=== PATIENT | male | born 1955 | race Caucasian/White ===

== ENCOUNTER 2018-04-22 16:59 | Inpatient (IN) ==
--- NOTE | 2018-04-22 17:55 | ED ---
HPI General Chief complaint: Arrhythmia / Palpitations Stated complaint: Swollen Feet/sob x 15 days/new onset of Afib Time Seen by Provider: 04/22/18 17:38 Source: patient and family (daughter) Mode of arrival: ambulatory Limitations: no limitations History of Present Illness HPI narrative: 65-year-old male patient with history of hypertension noncompliant with his blood pressure medications, presents to the ER today because he has had 2 weeks history of worsening dyspnea on exertion, orthopnea, leg swelling, and weakness according to the daughter. 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 He was found to have a new onset atrial fibrillation and was sent into the ER for further evaluation. He has not had any chest pains, fevers, vomiting, or any other symptoms. History is mostly per daughter since he speaks little Upper Sorbian. Modifying Factors: None Associated Signs & Symptoms: Increased dyspnea on exertion, weakness, leg swelling for 2 weeks Risk Factors: None Related Data Home Medications Medication Instructions Recorded Confirmed lisinopril 20 mg PO DAILY 04/22/18 04/22/18 metformin 500 mg PO BID 04/22/18 04/22/18 nifedipine 60 mg PO DAILY 04/22/18 04/22/18 Allergies Allergy/AdvReac Type Severity Reaction Status Date / Time No Known Allergies Allergy Verified 04/22/18 17:08 Review of Systems ROS: all other systems reviewed are negative [facility] Medical History Medical History Diabetes (Acute) HTN (hypertension) (Acute) New onset a-fib (Acute) Social History Social History Substance History: No History of Abuse Smoking Status: Never smoker How Often Do You Have a Drink Containing Alcohol: 2 to 4 times a month Recent Travel in [facility] within the Last 8 Weeks: No Recent Out of Country Travel within the Last 8 Weeks: No Immunization History Tetanus Immunization: <5 Years Exam Narrative Exam Narrative: GENERAL: Well-developed elderly male patient currently in mild distress. Awake and oriented x3. SKIN: Focused skin assessment warm/dry. HEAD: Atraumatic. Normocephalic. EYES: Pupils equal and round. No scleral icterus. No injection or drainage. ENT: No nasal bleeding or discharge. Mucous membranes pink and moist. NECK: Trachea midline. Supple.. CARDIOVASCULAR: Regular rate and rhythm. No murmur appreciated. RESPIRATORY: No accessory muscle use. Clear to auscultation. Breath sounds equal bilaterally. GASTROINTESTINAL: Abdomen soft, non-tender, nondistended. Hepatic and splenic margins not palpable. MUSCULOSKELETAL: No obvious deformities. No clubbing. No cyanosis. Bilateral leg pitting edema. NEUROLOGICAL: Awake and alert. No obvious cranial nerve deficits. Motor grossly within normal limits. Normal speech. PSYCHIATRIC: Appropriate mood and affect; insight and judgment normal. Course Initial Documented Vital Signs Temperature 98.6 F 04/22/18 17:06 Pulse Rate 92 H 04/22/18 17:06 Respiratory Rate 16 04/22/18 17:06 Blood Pressure 167/111 H 04/22/18 17:06 Pulse Oximetry 96 04/22/18 17:06 Last Documented Vital Signs Temperature 98.6 F 04/22/18 17:06 Pulse Rate 90 04/22/18 18:04 Respiratory Rate 18 04/22/18 17:37 Blood Pressure 174/116 H 04/22/18 17:37 Pulse Oximetry 97 04/22/18 18:04 Medical Decision Making MDM Narrative Medical decision making narrative: EKG shows A. fib at a rate of 90 bpm. Blood pressure is fairly elevated. His oxygenation is 97% on room air. Chest x-ray shows signs of venous congestion and BNP is 1300 consistent with a CHF as well. At this point, Lasix was given in the ER. Case is discussed with Dr. Gonsalves for admission for further evaluation of his heart. His d-dimer is mildly elevated and PE study was also ordered for further evaluation. Per discussion with Dr. Gonsalves, he would like the patient to be started on Eliquis as well for the new onset A. fib. Medical Screen Exam Complete: Yes Emergency Medical Condition: Yes Differential Diagnosis Differential Diagnosis: New onset A. fib versus ACS versus pneumonia versus CHF versus PE Lab Data Lab results reviewed: Yes I reviewed the patient's lab results. Result diagrams: 04/22/18 17:50 04/22/18 17:50 Lab Results 04/22/18 04/22/18 04/22/18 Range/Units 17:50 17:50 17:50 CBC w Diff Auto diff final WBC 6.8 (4.0-11.0) th/mm3 RBC 4.98 (4.50-5.90) mil/mm3 Hgb 14.2 (13.0-17.0) gm/dL Hct 44.9 (39.0-51.0) % MCV 90.2 (80.0-100.0) fL MCH 28.5 (27.0-34.0) pg MCHC 31.5 L (32.0-36.0) % RDW 15.2 (11.6-17.2) % Plt Count 176 (150-450) th/mm3 MPV 9.1 (7.0-11.0) fL Neut % (Auto) 70.8 H (16.0-70.0) % Lymph % (Auto) 19.7 (9.0-44.0) % Mcpherson % (Auto) 6.6 (0.0-8.0) % Eos % (Auto) 2.0 (0.0-4.0) % Baso % (Auto) 0.9 (0.0-2.0) % Neut # (Auto) 4.8 (1.8-7.7) th/mm3 Lymph # (Auto) 1.3 (1.0-4.8) th/mm3 Mcpherson # (Auto) 0.5 (0.0-0.9) th/mm3 Eos # (Auto) 0.1 (0.0-0.4) th/mm3 Baso # (Auto) 0.1 (0.0-0.2) th/mm3 WBC Differential . Differential Comment . PT 11.4 (9.8-11.6) sec INR 1.1 Ratio APTT 27.8 (23.4-31.7) sec D-Dimer Quant (PE/DVT) (0.00-0.50) mg/L FEU Sodium 139 (136-145) meq/L Potassium 4.0 (3.5-5.1) meq/L Chloride 104 (98-107) meq/L Carbon Dioxide 28.3 (21.0-32.0) meq/L Anion Gap 7 (5-15) meq/L BUN 23 H (7-18) mg/dL Creatinine 1.40 H (0.60-1.30) mg/dL Estimated GFR 51 L (>89) mL/min Random Glucose 134 H (74-106) mg/dL Calcium 8.0 L (8.5-10.1) mg/dL Total Bilirubin 0.8 (0.2-1.0) mg/dL AST 29 (15-37) U/L ALT 24 (12-78) U/L Alkaline Phosphatase 84 (45-117) U/L Troponin I 0.02 (0.02-0.05) ng/mL B-Natriuretic Peptide (0-100) pg/mL Total Protein 6.5 (6.4-8.2) g/dL Albumin 2.4 L (3.4-5.0) g/dL 04/22/18 04/22/18 Range/Units 17:50 17:50 CBC w Diff WBC (4.0-11.0) th/mm3 RBC (4.50-5.90) mil/mm3 Hgb (13.0-17.0) gm/dL Hct (39.0-51.0) % MCV (80.0-100.0) fL MCH (27.0-34.0) pg MCHC (32.0-36.0) % RDW (11.6-17.2) % Plt Count (150-450) th/mm3 MPV (7.0-11.0) fL Neut % (Auto) (16.0-70.0) % Lymph % (Auto) (9.0-44.0) % Mcpherson % (Auto) (0.0-8.0) % Eos % (Auto) (0.0-4.0) % Baso % (Auto) (0.0-2.0) % Neut # (Auto) (1.8-7.7) th/mm3 Lymph # (Auto) (1.0-4.8) th/mm3 Mcpherson # (Auto) (0.0-0.9) th/mm3 Eos # (Auto) (0.0-0.4) th/mm3 Baso # (Auto) (0.0-0.2) th/mm3 WBC Differential Differential Comment PT (9.8-11.6) sec INR Ratio APTT (23.4-31.7) sec D-Dimer Quant (PE/DVT) 0.91 H (0.00-0.50) mg/L FEU Sodium (136-145) meq/L Potassium (3.5-5.1) meq/L Chloride (98-107) meq/L Carbon Dioxide (21.0-32.0) meq/L Anion Gap (5-15) meq/L BUN (7-18) mg/dL Creatinine (0.60-1.30) mg/dL Estimated GFR (>89) mL/min Random Glucose (74-106) mg/dL Calcium (8.5-10.1) mg/dL Total Bilirubin (0.2-1.0) mg/dL AST (15-37) U/L ALT (12-78) U/L Alkaline Phosphatase (45-117) U/L Troponin I (0.02-0.05) ng/mL B-Natriuretic Peptide 1330 H (0-100) pg/mL Total Protein (6.4-8.2) g/dL Albumin (3.4-5.0) g/dL Imaging Data Attestation: I personally reviewed and interpreted this imaging study as follows : Radiologist's impression: Chest X-Ray 04/22/18 17:38 CONCLUSION: 1. Mild cardiomegaly with mild pulmonary vascular congestion. 2. Mild more confluent airspace disease in the left lung base may reflect atelectasis. Developing pneumonia cannot be excluded in the appropriate clinical setting. ECG Data Interpretation: EKG shows A. fib with ventricular rate of 92 bpm. Discharge Plan Discharge Order Discharge Orders: ED Use Only Admit Order (Routine); Ordered 04/22/18 Ordered By: Audrey Estrella Discharge Details Anticipated Discharge Date: 04/22/18 Physicians Team ED Provider: Audrey Estrella Primary Care Provider: Ashleigh Romero Rxs /Orders / Referrals /Forms Prescriptions: No Action metformin 500 mg Tablet 500 mg PO BID RF: 0 lisinopril 20 mg Tablet 20 mg PO DAILY RF: 0 nifedipine 60 mg Tablet Extended Release 60 mg PO DAILY RF: 0 Discharge Interventions Interventions: Vital Signs Last Done: 04/22/18 17:37 Status ED Status: With Doctor
--- NOTE | 2018-04-22 18:10 | XR ---
EXAM DATE: 04/22/2018 6:07 PM EST AGE/SEX: 62 years / Male INDICATIONS: Shortness of breath. CLINICAL DATA: This is the patient's initial encounter. Patient reports that signs and symptoms have been present for 1 week and indicates a pain score of 0/10. MEDICAL/SURGICAL HISTORY: Hypertension. Diabetes mellitus type II. None. COMPARISON: No prior exams available for comparison. FINDINGS: Mild diffuse interstitial prominence with patchy airspace disease in the lower lung zones which appea r slightly more confluent in the left lower lung zone. Likely trace fluid in the fissures. Cardiac si lhouette is mildly enlarged with indistinct central pulmonary vascularity. Remainder of the exam is u nchanged. CONCLUSION: 1. Mild cardiomegaly with mild pulmonary vascular congestion. 2. Mild more confluent airspace disease in the left lung base may reflect atelectasis. Developing pn eumonia cannot be excluded in the appropriate clinical setting. Electronically signed by: Cristian Dixon MD Board Certified Radiologist 04/22/2018 6:09 PM YVONNE Cochran
[2018-04-22 18:17] LABS: Baso # (Auto) 0.1 th/mm3 (0.0-0.2); Baso % (Auto) 0.9 % (0.0-2.0); Eos # (Auto) 0.1 th/mm3 (0.0-0.4); Hematocrit 44.9 % (39.0-51.0); Hemoglobin 14.2 gm/dL (13.0-17.0); Lymph # (Auto) 1.3 th/mm3 (1.0-4.8); Lymph % (Auto) 19.7 % (9.0-44.0); Mean Corpuscular HGB Conc 31.5 % (32.0-36.0); Mean Corpuscular Hemoglobin 28.5 pg (27.0-34.0); Mean Corpuscular Volume 90.2 fL (80.0-100.0); Mean Platelet Volume 9.1 fL (7.0-11.0); Mono # (Auto) 0.5 th/mm3 (0.0-0.9); Mono % (Auto) 6.6 % (0.0-8.0); Neut # (Auto) 4.8 th/mm3 (1.8-7.7); Neut % (Auto) 70.8 % (16.0-70.0); Platelet Count 176 th/mm3 (150-450); Red Blood Count 4.98 mil/mm3 (4.50-5.90); Red Cell Distribution Width 15.2 % (11.6-17.2); White Blood Count 6.8 th/mm3 (4.0-11.0)
[2018-04-22 18:24] LABS: Chloride 104 meq/L (98-107); Sodium 139 meq/L (136-145)
[2018-04-22 18:27] LABS: Albumin 2.4 g/dL (3.4-5.0); Anion Gap 7 meq/L (5-15); Blood Urea Nitrogen 23 mg/dL (7-18); Carbon Dioxide 28.3 meq/L (21.0-32.0); Glucose,Random 134 mg/dL (74-106)
[2018-04-22 18:28] LABS: Activated Partial Thrombo Time 27.8 sec (23.4-31.7); INR 1.1 Ratio; Prothrombin Time 11.4 sec (9.8-11.6)
[2018-04-22 18:30] LABS: Alanine Aminotransferase 24 U/L (12-78); Aspartate Aminotransferase 29 U/L (15-37); Glomerular Filtration Rate 51 mL/min (>89)
[2018-04-22 18:32] LABS: Total Protein 6.5 g/dL (6.4-8.2)
[2018-04-22 18:33] LABS: Alkaline Phosphatase 84 U/L (45-117)
[2018-04-22 18:35] LABS: Troponin I 0.02 ng/mL (0.02-0.05)
[2018-04-22] MEDS ORDERED: Bisacodyl 10 MG Supp RECTAL PRN (19:30)
[2018-04-22] MEDS ORDERED: Acetaminophen 325 MG Tablet PO PRN (19:30)
--- NOTE | 2018-04-22 19:58 | P.HP ---
History of Present Illness Service: [facility] Hospitalist Primary Care Physician: Ashleigh Romero MD Chief Complaint: 2 weeks of increasing shortness of breath lower extremity edema History of Present Illness: 62-year-old white male speaks no Icelandic who was brought in by his daughter and his basically with complaints of increasing shortness of breath lower extremity edema over a 2-week time. Patient does have a history of hypertension and is supposed to be on nifedipine 60 mg daily as well as lisinopril 20 mg daily, and has a history of diabetes on metformin 500 a day. Patient has been noncompliant and does not take these medicines. In the emergency room he had a chest x-ray was consistent with cardiomegaly and congestive heart failure, was found to be in atrial fibrillation heart rate is ranging from anywhere from 95-105, elevated blood pressure systolic 180 diastolic approximately 100, BNP greater than 1000. Patient will be started on IV Lasix will receive 40 mg in the emergency room also due to the elevated blood pressure I will give him an IV dose of Vasotec admit him to the intensive care unit. Recheck labs in the morning we will see how he is doing clinically we will need to also add a 2D echo he had a slight elevation of d-dimer and we will get CTA, and due to the A. fib new onset will empirically start the patient on Eliquis 2.5 twice daily in view of the slight kidney insufficiency his creatinine is approximately 1.6. - Diagnosis (1) CHF (congestive heart failure) (2) New onset a-fib (3) Hypertension (4) Diabetes Inpatient Certification: I certify that the inpatient services were ordered in accordance with Medicare regulations governing the order. This includes certification that hospital inpatient services are reasonable and necessary and in the case of services not specified as inpatient-only under 42 CFR 419.22(n), that they are appropriately provided as inpatient services in accordance to with the 2-midnight benchmark under 43 CFR 412.3(e) Estimated Total Length of Stay (Days): 3 Plans for Post Hospital Care: Not yet determined Review of Systems Cardiovascular: Reports fast heart rate, Reports foot swelling, Reports shortness of breath, Reports shortness of breath when lying down PMFSH - History History Provided By: Patient - Medical History Medical History: Medical History (Last Reviewed 04/22/18 @ 19:55 by Zeb Gonsalves MD) Diabetes HTN (hypertension) New onset a-fib - Tobacco History Smoking Status: Never smoker - Alcohol History How Often Do You Have a Drink Containing Alcohol: 2 to 4 times a month - Substance Use History Substance History: No History of Abuse - Travel History Recent Travel in the [place] Within the Last 8 Weeks: No Recent Travel Out of the Country Within the Last 8 Weeks: No - Immunization History Tetanus Immunization: <5 Years Medications and Allergies Active Medications: Active Medications Acetaminophen (Tylenol) 650 mg PO Q4H PRN PRN Reason: Temp > 100.4 Al Hydroxide/Mg Hydroxide (Milk Of Magnesia Liq) 30 ml PO Q12H PRN PRN Reason: Mild Constipation Bisacodyl (Dulcolax Supp) 10 mg RECTAL DAILY PRN PRN Reason: SEVERE CONSITIPATION Enalaprilat (Vasotec Inj) 1.25 mg IV.PUSH Q8H PRN PRN Reason: SBP>180, DBP>100, HR>65 Lactulose (Lactulose Liq) 30 ml PO DAILY PRN PRN Reason: SEVERE CONSITIPATION Lisinopril (Prinivil) 20 mg PO DAILY ANGEL Non-Formulary Medication (Nifedipine [Nifedipine]) 60 mg PO DAILY ANGEL Ondansetron HCl (Zofran Inj) 4 mg IV.PUSH Q6H PRN PRN Reason: NAUSEA OR VOMITING Senna/Docusate Sodium (Cindy-Colace) 1 tab PO BID ANGEL Sennosides (Senokot) 17.2 mg PO Q12H PRN PRN Reason: Moderate Constipation Sodium Chloride (Ns Flush) 2 ml IV.FLUSH UNSCH PRN PRN Reason: FLUSH AFTER USING IV ACCESS Sodium Chloride (Ns Flush) 2 ml IV.FLUSH BID ANGEL Sodium Chloride (Ns Flush) 2 ml IV.FLUSH PRN PRN PRN Reason: FLUSH AFTER USING IV ACCESS Allergies Allergy/AdvReac Type Severity Reaction Status Date / Time No Known Allergies Allergy Verified 04/22/18 17:08 Home Medications Medication Instructions Recorded Confirmed Type lisinopril 20 mg PO DAILY 04/22/18 04/22/18 History metformin 500 mg PO BID 04/22/18 04/22/18 History nifedipine 60 mg PO DAILY 04/22/18 04/22/18 History Exam Vital signs: Vital Signs 04/22/18 17:06 04/22/18 17:37 04/22/18 18:04 Temperature 98.6 F Pulse Rate 92 H 93 H 90 Respiratory Rate 16 18 Blood Pressure 167/111 H 174/116 H Pulse Oximetry 96 97 97 04/22/18 19:01 Temperature Pulse Rate 91 H Respiratory Rate 18 Blood Pressure 174/118 H Pulse Oximetry 96 Intake & Output 04/22/18 04/22/18 04/23/18 06:59 18:59 06:59 Weight 99.5 kg Narrative: GENERAL: SKIN: Warm and dry. HEAD: Normocephalic. EYES: No scleral icterus. No injection or drainage. NECK: Supple, trachea midline. No JVD or lymphadenopathy. CARDIOVASCULAR: irreg rate and rhythm without murmurs, gallops, or rubs. RESPIRATORY: Breath sounds decreased with bilateral rales bases. No accessory muscle use. GASTROINTESTINAL: Abdomen soft, non-tender, nondistended. MUSCULOSKELETAL: No cyanosis, or edema. BACK: Nontender without obvious deformity. No CVA tenderness. Results - Labs CBC & Chem 7: 04/22/18 17:50 04/22/18 17:50 Labs: Laboratory Results - last 24 hr 04/22/18 04/22/18 04/22/18 17:50 17:50 17:50 CBC w Diff Auto diff final WBC 6.8 RBC 4.98 Hgb 14.2 Hct 44.9 MCV 90.2 MCH 28.5 MCHC 31.5 L RDW 15.2 Plt Count 176 MPV 9.1 Neut % (Auto) 70.8 H Lymph % (Auto) 19.7 Boyd % (Auto) 6.6 Eos % (Auto) 2.0 Baso % (Auto) 0.9 Neut # (Auto) 4.8 Lymph # (Auto) 1.3 Boyd # (Auto) 0.5 Eos # (Auto) 0.1 Baso # (Auto) 0.1 WBC Differential . Differential Comment . PT 11.4 INR 1.1 APTT 27.8 D-Dimer Quant (PE/DVT) Sodium 139 Potassium 4.0 Chloride 104 Carbon Dioxide 28.3 Anion Gap 7 BUN 23 H Creatinine 1.40 H Estimated GFR 51 L Random Glucose 134 H Calcium 8.0 L Total Bilirubin 0.8 AST 29 ALT 24 Alkaline Phosphatase 84 Troponin I 0.02 B-Natriuretic Peptide Total Protein 6.5 Albumin 2.4 L 04/22/18 04/22/18 17:50 17:50 CBC w Diff WBC RBC Hgb Hct MCV MCH MCHC RDW Plt Count MPV Neut % (Auto) Lymph % (Auto) Boyd % (Auto) Eos % (Auto) Baso % (Auto) Neut # (Auto) Lymph # (Auto) Boyd # (Auto) Eos # (Auto) Baso # (Auto) WBC Differential Differential Comment PT INR APTT D-Dimer Quant (PE/DVT) 0.91 H Sodium Potassium Chloride Carbon Dioxide Anion Gap BUN Creatinine Estimated GFR Random Glucose Calcium Total Bilirubin AST ALT Alkaline Phosphatase Troponin I B-Natriuretic Peptide 1330 H Total Protein Albumin - Imaging Impressions Chest X-Ray 04/22/18 17:38 CONCLUSION: 1. Mild cardiomegaly with mild pulmonary vascular congestion. 2. Mild more confluent airspace disease in the left lung base may reflect atelectasis. Developing pneumonia cannot be excluded in the appropriate clinical setting. Caprini VTE Risk Assessment Caprini VTE Risk Assessment: Moderate/High Risk (score >= 2) Caprini Risk Assessment Model: Point Value = 1 Point Value = 2 Point Value = 3 Point Value = 5 Age 41-60 Minor surgery BMI > 25 kg/m2 Swollen legs Varicose veins or History of unexplained or recurrent spontaneous Oral contraceptives or hormone replacement Sepsis (< 1 month) Serious lung disease, including pneumonia (< 1 month) Abnormal pulmonary function Acute myocardial infarction Congestive heart failure (< 1 month) History of inflammatory bowel disease Medical patient at bed rest Age 61-74 Arthroscopic surgery Major open surgery (> 45 min) Laparoscopic surgery (> 45 min) Malignancy Confined to bed (> 72 hours) Immobilizing plaster cast Central venous access Age >= 75 History of VTE Family history of VTE Factor V Leiden Prothrombin [id number] Lupus anticoagulant Anticardiolipin antibodies Elevated serum homocysteine Heparin-induced thrombocytopenia Other congenital or acquired thrombophilia Stroke (< 1 month) Elective arthroplasty Hip, pelvis, or leg fracture Acute spinal cord injury (< 1 month) Prophylaxis Regimen: Total Risk Factor Score Risk Level Prophylaxis Regimen 0-1 Low Early ambulation 2 Moderate Order ONE of the following: *Sequential Compression Device (SCD) *Heparin 5000 units SQ BID 3-4 Higher Order ONE of the following medications: *Heparin 5000 units SQ TID *Enoxaparin/Lovenox 40 mg SQ daily (WT < 150 kg, CrCl > 30 mL/min) *Enoxaparin/Lovenox 30 mg SQ daily (WT < 150 kg, CrCl > 10-29 mL/min) *Enoxaparin/Lovenox 30 mg SQ BID (WT < 150 kg, CrCl > 30 mL/min) AND/OR *Sequential Compression Device (SCD) 5 or more Highest Order ONE of the following medications: *Heparin 5000 units SQ TID (Preferred with Epidurals) *Enoxaparin/Lovenox 40 mg SQ daily (WT < 150 kg, CrCl > 30 mL/min) *Enoxaparin/Lovenox 30 mg SQ daily (WT < 150 kg, CrCl > 10-29 mL/min) *Enoxaparin/Lovenox 30 mg SQ BID (WT < 150 kg, CrCl > 30 mL/min) AND *Sequential Compression Device (SCD) Assessment and Plan - Assessment (1) CHF (congestive heart failure) Code(s): I50.9 - Heart failure, unspecified Status: Acute Plan: IV diuresis with Lasix 40 mg will use twice daily for now and see how patient responds follow labs also continue his HUGO which she had not been taking at home (2) New onset a-fib Code(s): I48.91 - Unspecified atrial fibrillation Status: Acute Plan: We will get a 2D echo as the heart rate is relatively stable and not use any calcium channel alcira at this time (3) Hypertension Code(s): I10 - Essential (primary) hypertension Status: Acute Plan: We will use IV Vasotec for now and follow labs, continue his nifedipine which is supposed to be taking 60 mg daily (4) Diabetes Code(s): E11.9 - Type 2 diabetes mellitus without complications Status: Acute Plan: Hold his metformin which she had not been taking at home as his creatinine is slightly elevated and will use a sliding scale with coverage - Plan Further plan as case develops Code Status: Full Discussed Condition With: Patient and family
--- NOTE | 2018-04-22 19:59 | CT ---
EXAM DATE: 04/22/2018 7:52 PM EST AGE/SEX: 62 years / Male INDICATIONS: Swollen feet. Shortness of breath for 15 days. CLINICAL DATA: This is the patient's initial encounter. Patient reports that signs and symptoms have been present for 2 weeks and indicates a pain score of 2/10. MEDICAL/SURGICAL HISTORY: . Diabetes. Hypertension. New onset atrial fibrillation. . RADIATION DOSE: 18.55 CTDI (mGy) COMPARISON: [facility], CHEST 1V SINGLE AP, 04/22/2018. . TECHNIQUE: Volumetric scanning was performed using a multi-row detector CT scanner during bolus infu jossy of 75 ml Omnipaque 350 (iohexol) nonionic water-soluble contrast as a single exam dose. The jaret a was post processed with a variety of visualization algorithms including full volume maximum intensi ty projection and sliding thin slab reformation. Using automated exposure control and adjustment of the mA and/or kV according to patient size, radiation dose was kept as low as reasonably achievable t o obtain optimal diagnostic quality images. DICOM format image data is available electronically for review and comparison. FINDINGS: Pulmonary Arteries: No filling defects are seen in the pulmonary arteries through the segmental vess els. The main pulmonary artery is normal in diameter. Lung: Minimal groundglass opacities at the lung bases adjacent pleural fluid. Mild airspace consolid ation in the inferior lingula. Pleura: Small bilateral pleural effusions with trace fluid in the major fissures. Mediastinum: Cardiac silhouette is enlarged. No significant pericardial effusion. Subcentimeter medi astinal nodes do not meet CT size criteria. Osseous Structures: No abnormal focal lytic or blastic bony lesions. Other: Visualized upper abdomen demonstrates a gallstone in the gallbladder. Fat-containing left adr enal mass measuring 2.7 cm. CONCLUSION: 1. No CT evidence for pulmonary artery embolism as questioned. 2. Cardiomegaly with small bilateral pleural effusions and associated atelectasis at the lung bases. 3. Mild airspace consolidation in the inferior lingula. 4. Cholelithiasis. 5. 2.7 cm left adrenal myelolipoma. Electronically signed by: Cristian Dixon MD Board Certified Radiologist 04/22/2018 7:57 PM YVONNE T
[2018-04-22 20:03] LABS: INR 1.1 Ratio; Prothrombin Time 11.3 sec (9.8-11.6)
[2018-04-22] MEDS: Senna/Docusate Sodium 8.6/50 MG Tablet PO SCH (21:23)
[2018-04-22] MEDS ORDERED: Dextrose 50% in Water 50 ML Vial IV.PUSH PRN (21:34)
[2018-04-22] MEDS ORDERED: Labetalol HCl Inj 100 MG/20 ML Vial IV.PUSH SCH (23:15)
[2018-04-22] MEDS: Insulin NovoLOG Aspart Correctional Sugar Inj SQ SCH (23:23)
[2018-04-23 07:08] LABS: Hematocrit 46.4 % (39.0-51.0); Hemoglobin 14.8 gm/dL (13.0-17.0); Mean Corpuscular Hemoglobin 28.9 pg (27.0-34.0); Mean Corpuscular Volume 90.3 fL (80.0-100.0); Mean Platelet Volume 9.1 fL (7.0-11.0); Red Blood Count 5.13 mil/mm3 (4.50-5.90); Red Cell Distribution Width 14.8 % (11.6-17.2); White Blood Count 6.7 th/mm3 (4.0-11.0)
[2018-04-23 07:13] LABS: Potassium 3.2 meq/L (3.5-5.1)
[2018-04-23 07:16] LABS: Calcium 8.2 mg/dL (8.5-10.1); Carbon Dioxide 31.7 meq/L (21.0-32.0)
[2018-04-23 07:32] LABS: Platelet Count 96 th/mm3 (150-450)
[2018-04-23] MEDS: Metoprolol Tartrate 25 MG Tablet PO SCH ×2 (08:31→20:56)
[2018-04-23] MEDS: Lisinopril 20 MG Tablet PO SCH (08:31)
[2018-04-23] MEDS: Insulin NovoLOG Aspart Correctional Sugar Inj SQ SCH ×4 (08:31→20:42)
[2018-04-23] MEDS: Senna/Docusate Sodium 8.6/50 MG Tablet PO SCH ×2 (08:39→20:56)
[2018-04-23] MEDS ORDERED: Influenza (Quadrivalent) Vaccine 0.5 ML Syringe IM ONE (09:00)
--- NOTE | 2018-04-23 12:03 | P.PN ---
Subjective Interval history: Patient admitted with new atrial fib and CHF ,diuresing well ,feeling better labs slight decrease in potassium BNP remains elevated ,heart rate between 80- 105 started on lopressor 25 bid ,also blood pressure still running high but overall better. CTA CHF no PE as patient had 3elevated d dimer. Physical Exam Vital signs: Vital Signs 04/22/18 17:06 04/22/18 17:37 04/22/18 18:04 Temperature 98.6 F Pulse Rate 92 H 93 H 90 Respiratory Rate 16 18 Blood Pressure 167/111 H 174/116 H Pulse Oximetry 96 97 97 04/22/18 19:01 04/22/18 19:30 04/22/18 20:00 Temperature Pulse Rate 91 H 101 H 78 Respiratory Rate 18 18 Blood Pressure 174/118 H 178/126 H Pulse Oximetry 96 100 98 04/22/18 20:24 04/22/18 20:56 04/22/18 22:00 Temperature Pulse Rate 102 H 104 H 102 H Respiratory Rate 18 14 18 Blood Pressure 168/100 H 169/116 H 178/109 H Pulse Oximetry 100 04/22/18 23:00 04/22/18 23:15 04/23/18 00:00 Temperature 98.3 F Pulse Rate 94 H 80 Respiratory Rate 11 L 12 Blood Pressure 160/107 H Pulse Oximetry 98 04/23/18 01:00 04/23/18 02:00 04/23/18 03:00 Temperature Pulse Rate 84 80 88 Respiratory Rate 16 15 9 L Blood Pressure 157/100 H 148/86 H 169/103 H Pulse Oximetry 04/23/18 04:02 04/23/18 05:00 04/23/18 08:00 Temperature 97.7 F 97.6 F Pulse Rate 86 80 98 H Respiratory Rate 13 18 27 H Blood Pressure 180/99 H 148/87 H 135/109 H Pulse Oximetry Intake & Output 04/22/18 04/23/18 04/23/18 18:59 06:59 18:59 Output Total 2800 / 2800 Balance -2800 / -2800 Weight 99.5 kg 93.6 kg Output: Urine 2800 / 2800 Other: Date of Last Bowel Movement 04/22/18 Weight On Admission 96.9 kg Narrative: GENERAL: SKIN: Warm and dry. HEAD: Normocephalic. EYES: No scleral icterus. No injection or drainage. NECK: Supple, trachea midline. No JVD or lymphadenopathy. CARDIOVASCULAR: Irreg rate and rhythm without murmurs, gallops, or rubs. RESPIRATORY: Breath sounds decrease bilaterally. No accessory muscle use. Improved in rales GASTROINTESTINAL: Abdomen soft, non-tender, nondistended. MUSCULOSKELETAL: No cyanosis, or edema. BACK: Nontender without obvious deformity. No CVA tenderness. Results - Labs CBC & Chem 7: 04/23/18 06:17 04/23/18 06:17 Laboratory Results - last 24 hr 04/22/18 04/22/18 04/22/18 17:50 17:50 17:50 CBC w Diff Auto diff final WBC 6.8 RBC 4.98 Hgb 14.2 Hct 44.9 MCV 90.2 MCH 28.5 MCHC 31.5 L RDW 15.2 Plt Count 176 MPV 9.1 Neut % (Auto) 70.8 H Lymph % (Auto) 19.7 [place] % (Auto) 6.6 Eos % (Auto) 2.0 Baso % (Auto) 0.9 Neut # (Auto) 4.8 Lymph # (Auto) 1.3 [place] # (Auto) 0.5 Eos # (Auto) 0.1 Baso # (Auto) 0.1 WBC Differential . Differential Comment . PT 11.4 INR 1.1 APTT 27.8 D-Dimer Quant (PE/DVT) Sodium 139 Potassium 4.0 Chloride 104 Carbon Dioxide 28.3 Anion Gap 7 BUN 23 H Creatinine 1.40 H Estimated GFR 51 L POC Glucose Random Glucose 134 H Calcium 8.0 L Total Bilirubin 0.8 AST 29 ALT 24 Alkaline Phosphatase 84 Troponin I 0.02 B-Natriuretic Peptide Total Protein 6.5 Albumin 2.4 L 04/22/18 04/22/18 04/22/18 17:50 17:50 19:36 CBC w Diff WBC RBC Hgb Hct MCV MCH MCHC RDW Plt Count MPV Neut % (Auto) Lymph % (Auto) [place] % (Auto) Eos % (Auto) Baso % (Auto) Neut # (Auto) Lymph # (Auto) [place] # (Auto) Eos # (Auto) Baso # (Auto) WBC Differential Differential Comment PT 11.3 INR 1.1 APTT 28.0 D-Dimer Quant (PE/DVT) 0.91 H Sodium Potassium Chloride Carbon Dioxide Anion Gap BUN Creatinine Estimated GFR POC Glucose Random Glucose Calcium Total Bilirubin AST ALT Alkaline Phosphatase Troponin I B-Natriuretic Peptide 1330 H Total Protein Albumin 04/22/18 04/23/18 04/23/18 23:14 05:35 06:17 CBC w Diff WBC 6.7 RBC 5.13 Hgb 14.8 Hct 46.4 MCV 90.3 MCH 28.9 MCHC 32.0 RDW 14.8 Plt Count 96 L D MPV 9.1 Neut % (Auto) Lymph % (Auto) [place] % (Auto) Eos % (Auto) Baso % (Auto) Neut # (Auto) Lymph # (Auto) [place] # (Auto) Eos # (Auto) Baso # (Auto) WBC Differential Differential Comment PT INR APTT D-Dimer Quant (PE/DVT) Sodium Potassium Chloride Carbon Dioxide Anion Gap BUN Creatinine Estimated GFR POC Glucose 110 100 Random Glucose Calcium Total Bilirubin AST ALT Alkaline Phosphatase Troponin I B-Natriuretic Peptide Total Protein Albumin 04/23/18 04/23/18 04/23/18 06:17 06:17 06:30 CBC w Diff WBC RBC Hgb Hct MCV MCH MCHC RDW Plt Count MPV Neut % (Auto) Lymph % (Auto) [place] % (Auto) Eos % (Auto) Baso % (Auto) Neut # (Auto) Lymph # (Auto) [place] # (Auto) Eos # (Auto) Baso # (Auto) WBC Differential Differential Comment PT INR APTT 28.8 D-Dimer Quant (PE/DVT) Sodium 144 Potassium 3.2 L D Chloride 105 Carbon Dioxide 31.7 Anion Gap 7 BUN 21 H Creatinine 1.30 Estimated GFR 56 L POC Glucose Random Glucose 108 H Calcium 8.2 L Total Bilirubin AST ALT Alkaline Phosphatase Troponin I B-Natriuretic Peptide 1411 H Total Protein Albumin 04/23/18 11:50 CBC w Diff WBC RBC Hgb Hct MCV MCH MCHC RDW Plt Count MPV Neut % (Auto) Lymph % (Auto) [place] % (Auto) Eos % (Auto) Baso % (Auto) Neut # (Auto) Lymph # (Auto) [place] # (Auto) Eos # (Auto) Baso # (Auto) WBC Differential Differential Comment PT INR APTT D-Dimer Quant (PE/DVT) Sodium Potassium Chloride Carbon Dioxide Anion Gap BUN Creatinine Estimated GFR POC Glucose 130 H Random Glucose Calcium Total Bilirubin AST ALT Alkaline Phosphatase Troponin I B-Natriuretic Peptide Total Protein Albumin - Imaging Impressions Chest X-Ray 04/22/18 17:38 CONCLUSION: 1. Mild cardiomegaly with mild pulmonary vascular congestion. 2. Mild more confluent airspace disease in the left lung base may reflect atelectasis. Developing pneumonia cannot be excluded in the appropriate clinical setting. Chest CTA 04/22/18 18:43 CONCLUSION: 1. No CT evidence for pulmonary artery embolism as questioned. 2. Cardiomegaly with small bilateral pleural effusions and associated atelectasis at the lung bases. 3. Mild airspace consolidation in the inferior lingula. 4. Cholelithiasis. 5. 2.7 cm left adrenal myelolipoma. Assessment and Plan - Assessment (1) CHF (congestive heart failure) Code(s): I50.9 - Heart failure, unspecified Status: Acute Plan: IV diuresis with Lasix 40 mg will use twice daily for now and see how patient responds follow labs also continue his HUGO which she had not been taking at home , continue current treatment ,as patient improving will hold on cardiac consult and will set up as out patient ,pending 2d echo (2) New onset a-fib Code(s): I48.91 - Unspecified atrial fibrillation Status: Acute Plan: We will get a 2D echo as the heart rate is relatively stable and not use any calcium channel alcira was started on lopressor 25 bid and eliquis (3) Hypertension Code(s): I10 - Essential (primary) hypertension Status: Acute Plan: We will use IV Vasotec for now and follow labs, continue his nifedipine which is supposed to be taking 60 mg daily restarted med added lopressor (4) Diabetes Code(s): E11.9 - Type 2 diabetes mellitus without complications Status: Acute Plan: Hold his metformin which she had not been taking at home as his creatinine is slightly elevated and will use a sliding scale with coverage,cr better will hold metformin in am get A1C - Plan improving discharge tomorrow or wednesday will keep in intermit care as heart rate needs to be watched
--- NOTE | 2018-04-23 15:38 | ECHRPT ---
Indication: atrial fib CONCLUSIONS The left ventricular systolic function is low normal with an estimated ejection fraction in the rang e of 50- 55%. . Normal left ventricular size. Wall thickness is normal. No regional wall motion abnormalities are present. Trace mitral valve regurgitation. Aortic valve sclerosis is present. Trace aortic valve regurgitation. There is trace tricuspid valve regurgitation. Normal estimated pulmonary pressures. The pulmonary valve is not well visualized. BP: / HR: Rhythm: Atrial fibrillation MEASUREMENTS (Male / Female) Normal Values Technical Quality:Fair 2D ECHO LV Diastolic Diameter PLAX 4.8 cm 4.2 - 5.9 / 3.9 - 5.3 cm LV Systolic Diameter PLAX 4.1 cm IVS Diastolic Thickness 1.0 cm 0.6 - 1.0 / 0.6 - 0.9 cm LVPW Diastolic Thickness 1.1 cm 0.6 - 1.0 / 0.6 - 0.9 cm LV Relative Wall Thickness 0.4 LVOT Diameter 1.7 cm LA Systolic Diameter LX 3.5 cm 3.0 - 4.0 / 2.7 - 3.8 cm LV Ejection Fraction MOD 4C 42.6 % LV Ejection Fraction 4C AL 44.3 % M-MODE Aortic Root Diameter MM 2.0 cm LA Systolic Diameter MM 3.4 cm LA Ao Ratio MM 1.7 AV Cusp Separation MM 1.5 cm DOPPLER AV Peak Velocity 99.1 cm/s AV Peak Gradient 3.9 mmHg LVOT Peak Velocity 79.0 cm/s LVOT Peak Gradient 2.5 mmHg AV Area Cont Eq pk 1.8 cm MV Peak Velocity 108.0 cm/s MV Peak Gradient 4.7 mmHg MV Mean Velocity 73.2 cm/s MV Mean Gradient 2.0 mmHg MV Area PHT 3.7 cm LV E' Lateral Velocity 6.0 cm/s LV E' Septal Velocity 5.7 cm/s TR Peak Velocity 190.0 cm/s TR Peak Gradient 14.4 mmHg PV Peak Velocity 114.0 cm/s PV Peak Gradient 5.2 mmHg FINDINGS LEFT VENTRICLE The left ventricular systolic function is low normal with an estimated ejection fraction in the rang e of 50- 55%. Normal left ventricular size. Wall thickness is normal. No regional wall motion abnormalities are present. RIGHT VENTRICLE Normal right ventricular size and systolic function. LEFT ATRIUM The left atrial size is normal. RIGHT ATRIUM The right atrial size is normal. ATRIAL SEPTUM Normal atrial septal thickness without atrial level shunting by limited color doppler interrogation. AORTA The aortic root and proximal ascending aorta are normal in size on limited imaging. MITRAL VALVE Structurally normal mitral valve. Trace mitral valve regurgitation. AORTIC VALVE Trileaflet aortic valve. Aortic valve sclerosis is present. Trace aortic valve regurgitation. TRICUSPID VALVE Structurally normal tricuspid valve. There is trace tricuspid valve regurgitation. Normal estimated pulmonary pressures. PULMONARY VALVE The pulmonary valve is not well visualized. VESSELS The inferior vena cava is normal in size. PERICARDIUM No pericardial effusion. Deven Wiggins MD, FACC (Electronically Signed) Final Date:23 April 2018 15:37
--- NOTE | 2018-04-23 18:30 | ECG ---
Date Performed: 04/22/2018 Time Performed: 17:38:37 PTAGE: 62 years EKG: ATRIAL FIBRILLATION NONSPECIFIC ST & T-WAVE ABNORMALITY ABNORMAL ECG NO PREVIOUS TRACING DOCTOR: Lai Muhammad Interpretating Date/Time 04/23/2018 18:28:25
--- NOTE | 2018-04-24 04:08 | XR ---
EXAM DATE: 04/24/2018 3:57 AM EST AGE/SEX: 62 years / Male INDICATIONS: Congestive heart failure. CLINICAL DATA: This is the patient's subsequent encounter. Patient reports that signs and symptoms h ave been present for 3 days and indicates a pain score of 0/10. MEDICAL/SURGICAL HISTORY: . Hypertension. Diabetes mellitus type II. None. COMPARISON: [facility], CHEST 1V SINGLE AP, 04/22/2018. . FINDINGS: Parenchymal consolidation and small pleural effusions again seen of both lung bases, not significantl y changed. No pneumothorax demonstrated. Heart size stable, upper limits of normal. CONCLUSION: No significant change mild consolidation and small effusions at the bases. Electronically signed by: Sukhjinder López MD Board Certified Radiologist 04/24/2018 4:06 AM EST
[2018-04-24] MEDS: Insulin NovoLOG Aspart Correctional Sugar Inj SQ SCH ×3 (05:00→19:59)
[2018-04-24 06:44] LABS: Baso # (Auto) 0.1 th/mm3 (0.0-0.2); Baso % (Auto) 1.3 % (0.0-2.0); Eos # (Auto) 0.3 th/mm3 (0.0-0.4); Eos % (Auto) 3.8 % (0.0-4.0); Hematocrit 45.5 % (39.0-51.0); Hemoglobin 14.7 gm/dL (13.0-17.0); Lymph # (Auto) 1.4 th/mm3 (1.0-4.8); Mean Corpuscular HGB Conc 32.2 % (32.0-36.0); Mean Corpuscular Hemoglobin 28.6 pg (27.0-34.0); Mean Corpuscular Volume 88.6 fL (80.0-100.0); Mean Platelet Volume 8.9 fL (7.0-11.0); Mono # (Auto) 0.6 th/mm3 (0.0-0.9); Mono % (Auto) 7.7 % (0.0-8.0); Neut # (Auto) 4.8 th/mm3 (1.8-7.7); Neut % (Auto) 68.2 % (16.0-70.0); Platelet Count 90 th/mm3 (150-450); Red Blood Count 5.14 mil/mm3 (4.50-5.90); Red Cell Distribution Width 14.6 % (11.6-17.2); White Blood Count 7.2 th/mm3 (4.0-11.0)
[2018-04-24 06:56] LABS: Potassium 3.2 meq/L (3.5-5.1)
[2018-04-24 06:59] LABS: Calcium 7.9 mg/dL (8.5-10.1); Carbon Dioxide 33.2 meq/L (21.0-32.0)
[2018-04-24 07:18] LABS: Platelet Morphology Normal (Normal)
[2018-04-24] MEDS: Lisinopril 20 MG Tablet PO SCH (10:00)
[2018-04-24] MEDS: Metoprolol Tartrate 25 MG Tablet PO SCH ×2 (10:17→22:14)
[2018-04-24] MEDS: Senna/Docusate Sodium 8.6/50 MG Tablet PO SCH ×2 (10:19→22:14)
--- NOTE | 2018-04-24 12:15 | P.PN ---
Subjective Interval history: Patient breathing better ,lungs much improved on chest xray still has effusions without significant change ,bnp now at 800,will decrease lasix to daily and continue meds start eliquis as still in controlled atrial fib. 2d echo mild systolic dysfunction good EF. Physical Exam Vital signs: Vital Signs 04/23/18 16:00 04/23/18 19:26 04/23/18 20:00 Temperature 98.0 F 98 F Pulse Rate 70 82 Respiratory Rate 11 L 16 Blood Pressure 144/88 H 116/71 Pulse Oximetry 95 93 L 04/23/18 23:00 04/24/18 00:00 04/24/18 04:00 Temperature 98 F 98.5 F Pulse Rate 72 62 70 Respiratory Rate 17 15 16 Blood Pressure 125/82 119/81 Pulse Oximetry 92 L 93 L 04/24/18 08:00 04/24/18 09:00 04/24/18 10:00 Temperature Pulse Rate 88 86 78 Respiratory Rate 21 12 13 Blood Pressure 131/74 Pulse Oximetry Intake & Output 04/23/18 04/24/18 04/24/18 18:59 06:59 18:59 Intake Total 425 / 425 Output Total 200 / 200 200 / 200 Balance -200 / -200 225 / 225 Weight 92 kg Intake: Oral 425 / 425 Output: Urine 200 / 200 200 / 200 Other: # Voids 1 Date of Last Bowel Movement 04/22/18 04/22/18 04/24/18 # Bowel Movements 0 1 Narrative: GENERAL: SKIN: Warm and dry. HEAD: Normocephalic. EYES: No scleral icterus. No injection or drainage. NECK: Supple, trachea midline. No JVD or lymphadenopathy. CARDIOVASCULAR: Irreg rate and rhythm without murmurs, gallops, or rubs. RESPIRATORY: Breath sounds decrease bilaterally. No accessory muscle use. Improved in rales GASTROINTESTINAL: Abdomen soft, non-tender, nondistended. MUSCULOSKELETAL: No cyanosis, or edema. BACK: Nontender without obvious deformity. No CVA tenderness. Results - Labs CBC & Chem 7: 04/24/18 05:35 04/24/18 05:35 Laboratory Results - last 24 hr 04/23/18 04/24/18 04/24/18 18:56 00:17 05:35 CBC w Diff Slide review pending WBC 7.2 RBC 5.14 Hgb 14.7 Hct 45.5 MCV 88.6 MCH 28.6 MCHC 32.2 RDW 14.6 Plt Count 90 L MPV 8.9 Neut % (Auto) 68.2 Lymph % (Auto) 19.0 [place] % (Auto) 7.7 Eos % (Auto) 3.8 Baso % (Auto) 1.3 Neut # (Auto) 4.8 Lymph # (Auto) 1.4 [place] # (Auto) 0.6 Eos # (Auto) 0.3 Baso # (Auto) 0.1 WBC Differential . Diff Scan Auto diff confirmed Differential Comment . Platelet Estimate Low L Platelet Morphology Normal Sodium Potassium Chloride Carbon Dioxide Anion Gap BUN Creatinine Estimated GFR POC Glucose 147 H 166 H Random Glucose Calcium B-Natriuretic Peptide 04/24/18 04/24/18 05:35 05:35 CBC w Diff WBC RBC Hgb Hct MCV MCH MCHC RDW Plt Count MPV Neut % (Auto) Lymph % (Auto) [place] % (Auto) Eos % (Auto) Baso % (Auto) Neut # (Auto) Lymph # (Auto) [place] # (Auto) Eos # (Auto) Baso # (Auto) WBC Differential Diff Scan Differential Comment Platelet Estimate Platelet Morphology Sodium 144 Potassium 3.2 L Chloride 104 Carbon Dioxide 33.2 H Anion Gap 7 BUN 24 H Creatinine 1.40 H Estimated GFR 51 L POC Glucose Random Glucose 124 H Calcium 7.9 L B-Natriuretic Peptide 802 H - Imaging Impressions Chest X-Ray 04/24/18 00:00 CONCLUSION: No significant change mild consolidation and small effusions at the bases. Assessment and Plan - Assessment (1) CHF (congestive heart failure) Code(s): I50.9 - Heart failure, unspecified Status: Acute Plan: IV diuresis with Lasix 40 mg will use twice daily for now and see how patient responds follow labs also continue his HUGO which she had not been taking at home , continue current treatment ,as patient improving will hold on cardiac consult and will set up as out patient ,2d echo systolic dysfunction ef good change lasix to po tomorrow and plan discharge tomorrow. (2) New onset a-fib Code(s): I48.91 - Unspecified atrial fibrillation Status: Acute Plan: We will get a 2D echo as the heart rate is relatively stable and not use any calcium channel alcira was started on lopressor 25 bid and eliquis start (3) Hypertension Code(s): I10 - Essential (primary) hypertension Status: Acute Plan: We will use IV Vasotec for now and follow labs, continue his nifedipine which is supposed to be taking 60 mg daily restarted med added lopressor (4) Diabetes Code(s): E11.9 - Type 2 diabetes mellitus without complications Status: Acute Plan: Hold his metformin which she had not been taking at home as his creatinine is slightly elevated and will use a sliding scale with coverage,cr better will hold metformin in am get A1C restart metformin in am and will check a1c - Plan improving discharge tomorrow or wednesday will keep in intermit care as heart rate needs to be watched
[2018-04-24] MEDS ORDERED: Potassium Chloride 10 MEQ ER Capsule PO ONE (12:30)
[2018-04-24] MEDS ORDERED: Furosemide 40 MG Tablet PO ONE (21:00)
[2018-04-25 05:18] LABS: Hematocrit 43.3 % (39.0-51.0); Hemoglobin 14.1 gm/dL (13.0-17.0); Mean Corpuscular HGB Conc 32.6 % (32.0-36.0); Mean Corpuscular Hemoglobin 29.3 pg (27.0-34.0); Mean Corpuscular Volume 89.8 fL (80.0-100.0); Mean Platelet Volume 9.1 fL (7.0-11.0); Platelet Count 109 th/mm3 (150-450); Red Blood Count 4.83 mil/mm3 (4.50-5.90); Red Cell Distribution Width 15.2 % (11.6-17.2); White Blood Count 7.9 th/mm3 (4.0-11.0)
[2018-04-25] MEDS: Insulin NovoLOG Aspart Correctional Sugar Inj SQ SCH ×2 (05:25→06:37)
[2018-04-25 05:27] LABS: Potassium 3.6 meq/L (3.5-5.1)
[2018-04-25 05:32] LABS: Calcium 7.9 mg/dL (8.5-10.1)
[2018-04-25 05:33] LABS: Carbon Dioxide 32.5 meq/L (21.0-32.0)
[2018-04-25] MEDS ORDERED: Furosemide 40 MG Tablet PO SCH (09:00)
[2018-04-25] MEDS: Senna/Docusate Sodium 8.6/50 MG Tablet PO SCH (10:04)
[2018-04-25] MEDS: Lisinopril 20 MG Tablet PO SCH (10:04)
[2018-04-25] MEDS: Metoprolol Tartrate 25 MG Tablet PO SCH (10:04)
[2018-04-25 11:17] VITALS: TEMP 98.4
--- NOTE | 2018-04-25 11:35 | P.DS ---
Date of admission: 04/22/18 18:56 Primary care physician: Ashleigh Romero MD Attending physician on discharge: Zeb Gonsalves Anticipated date of discharge: 04/25/18 Brief History from admission: 62-year-old white male speaks no Persian who was brought in by his daughter and his basically with complaints of increasing shortness of breath lower extremity edema over a 2-week time. Patient does have a history of hypertension and is supposed to be on nifedipine 60 mg daily as well as lisinopril 20 mg daily, and has a history of diabetes on metformin 500 a day. Patient has been noncompliant and does not take these medicines. In the emergency room he had a chest x-ray was consistent with cardiomegaly and congestive heart failure, was found to be in atrial fibrillation heart rate is ranging from anywhere from 95-105, elevated blood pressure systolic 180 diastolic approximately 100, BNP greater than 1000. Patient will be started on IV Lasix will receive 40 mg in the emergency room also due to the elevated blood pressure I will give him an IV dose of Vasotec admit him to the intensive care unit. Recheck labs in the morning we will see how he is doing clinically we will need to also add a 2D echo he had a slight elevation of d-dimer and we will get CTA, and due to the A. fib new onset will empirically start the patient on Eliquis 2.5 twice daily in view of the slight kidney insufficiency his creatinine is approximately 1.6. Patient update on day of discharge: Patient stable for discharge as has all new meds will have home health follow up DS: Diagnosis - Discharge Diagnosis (1) CHF (congestive heart failure) Status: Acute (2) New onset a-fib Status: Acute (3) Hypertension Status: Acute (4) Diabetes Status: Acute DS: Summary Hospital Course: Patient admitted with new onset atrial fib,and chf ,with hypertension and diabetes. Patient has not been taking any of his regular medications for months. he did well with addition of IV lasix diuresed and BNP decreased to 300 level kidney function did increase to Cr 1.8 from 1.4 will follow this up as out patient. We did start on lorpessor 25 bid which is controlling heart rate and eliquis for a fib 2d echo showed mild systolic dysfunction . Also restarted his lisinopril 20. to hold off for now metformin as cr 1.8 watch diet there is a A1C pending .PCP will be made aware. Patient discharged in stable condition. Will have home health see as all new medications. - Time Spent with Patient Total time spent providing and/or coordinating discharge services: Greater than 30 minutes - Quality: VTE Deep Vein Thrombosis/Pulmonary Embolism Present on Admission: No Exam Vital signs: Vital Signs 04/24/18 12:00 04/24/18 14:00 04/24/18 18:00 Temperature Pulse Rate 72 78 80 Respiratory Rate 12 32 H 16 Blood Pressure 103/60 110/61 126/76 Pulse Oximetry 04/24/18 20:00 04/25/18 00:00 04/25/18 04:00 Temperature 99.5 F 99.4 F 98.9 F Pulse Rate 68 74 81 Respiratory Rate 20 18 17 Blood Pressure 133/78 103/66 118/91 H Pulse Oximetry 93 L 94 L 92 L 04/25/18 08:00 04/25/18 08:21 Temperature 98.4 F Pulse Rate 76 Respiratory Rate 18 Blood Pressure 131/78 Pulse Oximetry 94 L 98 Intake & Output 04/24/18 04/25/18 04/25/18 18:59 06:59 18:59 Intake Total 425 / 425 960 / 960 Output Total 200 / 200 1050 / 1050 350 / 350 Balance 225 / 225 -90 / -90 -350 / -350 Weight 94.8 kg Intake: Oral 425 / 425 960 / 960 Output: Urine 200 / 200 1050 / 1050 350 / 350 Other: Date of Last Bowel Movement 04/24/18 04/24/18 # Bowel Movements 1 Results Procedures completed during hospitalization: 2d echo Labs on day of discharge: Labs from last 24 hours 04/25/18 04/25/18 04/25/18 06:00 04:30 04:30 WBC RBC Hgb Hct MCV MCH MCHC RDW Plt Count MPV Sodium Potassium Chloride Carbon Dioxide Anion Gap BUN Creatinine Estimated GFR POC Glucose 115 H Random Glucose Hemoglobin A1c Pending Calcium B-Natriuretic Peptide 319 H 04/25/18 04/25/18 04/25/18 04:30 04:30 00:06 WBC 7.9 RBC 4.83 Hgb 14.1 Hct 43.3 MCV 89.8 MCH 29.3 MCHC 32.6 RDW 15.2 Plt Count 109 L MPV 9.1 Sodium 140 Potassium 3.6 Chloride 102 Carbon Dioxide 32.5 H Anion Gap 6 BUN 31 H Creatinine 1.80 H Estimated GFR 38 L POC Glucose 141 H Random Glucose 129 H Hemoglobin A1c Calcium 7.9 L B-Natriuretic Peptide 04/24/18 04/24/18 18:28 12:16 WBC RBC Hgb Hct MCV MCH MCHC RDW Plt Count MPV Sodium Potassium Chloride Carbon Dioxide Anion Gap BUN Creatinine Estimated GFR POC Glucose 151 H 159 H Random Glucose Hemoglobin A1c Calcium B-Natriuretic Peptide - Impressions ITS Impressions Chest CTA 04/22/18 18:43 CONCLUSION: 1. No CT evidence for pulmonary artery embolism as questioned. 2. Cardiomegaly with small bilateral pleural effusions and associated atelectasis at the lung bases. 3. Mild airspace consolidation in the inferior lingula. 4. Cholelithiasis. 5. 2.7 cm left adrenal myelolipoma. Chest X-Ray 04/24/18 00:00 CONCLUSION: No significant change mild consolidation and small effusions at the bases. Discharge Plan - Discharge Disposition Patient Disposition: W/Home Health Service - Discharge Condition Condition: Fair - Discharge Order Discharge Orders: Discharge Order (Routine); Ordered 04/25/18 Ordered By: Zeb Gonsalves ED Use Only Admit Order (Routine); Ordered 04/22/18 Ordered By: Audrey Estrella - Discharge Details Anticipated Discharge Date: 04/25/18 Discharge Comment: patient to have home health and follow up labs ordered for bmp bnp - Physicians Team Primary Care Provider: Ashleigh Romero Attending Provider: Zeb Gonsalves
--- NOTE | 2018-04-25 11:45 | P.DCO ---
- Diagnosis (1) CHF (congestive heart failure) Status: Acute (2) New onset a-fib Status: Acute (3) Hypertension Status: Acute (4) Diabetes Status: Acute - Home Health Nursing Order: Medical education, Signs/symptoms of disease process, Diabetic education , CHF education, Medication education-adverse effect - Case Management Consult Case Management Consult-Home Health: Yes - Certification I have seen patient Christopher Carver on 04/25/18. My clinical findings support the need for the requested home health care services because: Patient has SOB, Medication compliance is questionable I certify that my clinical findings support that this patient is homebound because: new medications Impaired cognitive ability/safety
[2018-04-25 12:23] VITALS: BP 125/72; PULSE 80; RESP 11; O2SAT 92
[2018-04-25 16:21] LABS: Hemoglobin A1c 7.1 % (4.3-6.0)
== END 2018-04-25 12:28 | disposition home health service (06) | DRG 310 ==
LOC: PHED 16:59 → PHEDA 18:56 → PHICU 20:36 → PHEDA 20:54
PROVIDERS: ADMIT Internal Medicine; ATTEND Internal Medicine
CPT/HCPCS: 71010; 71045; 71275; 80048; 80053; 82948; 82962; 83036; 83520; 83880; 84484; 85025; 85027; 85379; 85610; 85730; 93005; 93306; 99285; J1815; J1940; Q9967